=== PATIENT | male | born 1980 | race Two or more races ===

== ENCOUNTER 2018-09-19 11:21 | Observation (INO) | payer BC ==
[~2018-09-19] VITALS: Ht 162.6 cm; Wt 72.7 kg
[2018-09-19] MEDS ORDERED: TACROLIMUS ANHYD1 MG PO ×2 (11:38→11:39)
[2018-09-19] MEDS ORDERED: CELLCEPT500 MG PO (11:38)
[2018-09-19] MEDS ORDERED: OMEPRAZOLE20 M1 PO (11:38)
[2018-09-19] MEDS ORDERED: PREDNISONE5 MG PO (11:39)
[2018-09-19 12:31] LABS: BASOPHILS 0.1 % (0-2); EOSINOPHILS 0.4 % (0-7); HEMATOCRIT 47.1 % (42.0-54.0); HEMOGLOBIN 16.3 g/dL (13.5-17.5); IMMATURE GRANULOCYTES 0.4 % (0-5); LYMPHOCYTES 22.8 % (15-50); MCH 30.6 pg (26.0-34.0); MCHC 34.6 g/dL (31.0-37.0); MCV 88.5 fL (80.0-100.0); MEAN PLATELET VOLUME 9.4 fL (7.4-10.4); MONOCYTES 8.6 % (2-11); NEUTROPHILS 67.7 % (40-80); PLATELET COUNT 192 10x3/uL (130-400); RBC 5.32 10x6/uL (4.20-6.10); RDW 12.7 % (11.5-14.5); WBC 7.7 10x3/uL (4.8-10.8)
[2018-09-19 12:53] LABS: ALBUMIN 4.3 g/dL (3.4-5.0); ALKALINE PHOSPHATASE 138 U/L (46-116); ALT (SGPT) 15 U/L (10-68); BILIRUBIN - TOTAL 0.91 mg/dL (0.2-1.3); CALC OSMOLALITY 280 mosm/kg (275-300); CALCIUM 9.1 mg/dL (8.5-10.1); CARBON DIOXIDE 29.1 mmol/L (21.0-32.0); CHLORIDE - SERUM 102 mmol/L (98-107); GLUCOSE 96 mg/dL (74-106); POTASSIUM - SERUM 3.7 mmol/L (3.5-5.1); PROTEIN - SERUM 7.9 g/dL (6.4-8.2); SODIUM 140 mmol/L (136-145); UREA NITROGEN 17 mg/dL (7-18); eGFR NON AFRICAN AMERICAN 90 mL/min (90-120)
[2018-09-19 15:40] VITALS: BP 139/93
--- NOTE | 2018-09-19 15:56 | NUR ---
RECIEVED PT FROM ER. AT BEDSIDE.
[2018-09-19 16:14] VITALS: BP 139/77; Ht 162.6 cm; Wt 72.7 kg
--- NOTE | 2018-09-19 16:27 | NUR ---
PT ARRIVED FROM ER. VANCOMYCIN RUNNING. PT CO OF A "WEIRD ITCH ON HEAD". PT DOES HAVE A RASH ON THE SIDE OF HIS FACE BUT HE STATES THAT HAS BEEN THERE. VANCOMYCIN DECREASED TO 75CC/HR. L ARM IS RED AND WARM. BRUIT AND THRILL PRESENT. WILL CONTINUE TO MONITOR.
--- NOTE | 2018-09-19 20:15 | NUR ---
RESUMING PT CARE. PT IS ALERT LAYING IN BED WATCHING TV WITH NO C/O VOICED AT THIS TIME. FAMILY AT BEDSIDE. BED IN LOW POSITION WITH CALL LIGHT IN REACH. WILL CONTINUE TO MONITOR PT AND FOLLOW PLAN OF CARE.
[2018-09-19 22:08] VITALS: BP 134/79
[2018-09-20 05:05] LABS: BASOPHILS 0.2 % (0-2); EOSINOPHILS 1.2 % (0-7); HEMATOCRIT 46.7 % (42.0-54.0); IMMATURE GRANULOCYTES 0.3 % (0-5); LYMPHOCYTES 29.2 % (15-50); MCH 30.6 pg (26.0-34.0); MCHC 34.3 g/dL (31.0-37.0); MCV 89.3 fL (80.0-100.0); MEAN PLATELET VOLUME 9.3 fL (7.4-10.4); MONOCYTES 11.1 % (2-11); PLATELET COUNT 179 10x3/uL (130-400); RBC 5.23 10x6/uL (4.20-6.10); RDW 12.8 % (11.5-14.5); WBC 8.6 10x3/uL (4.8-10.8)
--- NOTE | 2018-09-20 05:45 | NUR ---
PT IN BED WITH EYES OPENED. VSS, RR UNLABORED. PT DENIES ANY NEED AT THIS TIME. CL IN REACH, BED IN LOW, SR UP X2. WILL CPOC.
[2018-09-20 07:42] VITALS: BP 112/75
[2018-09-20] MEDS ORDERED: SULFAMETHOXAZOL1 TA3 PO (09:34)
[2018-09-20] MEDS ORDERED: HYDROCODON-ACE1 EAC7 PO (09:35)
--- NOTE | 2018-09-20 12:11 | NUR ---
PT AMBULATED SELF OUT, AT SIDE. NO COMPLICATIONS/CONCERNS/COMPLAINTS NOTED AT THIS TIME.
--- NOTE | 2018-09-22 07:44 | MORECARE ---
CASE MANAGEMENT DISCHARGE SUMMARY PATIENT: LINDA NEGRON UNIT: [id number] ADM DATE: 09/19/18 AGE: 37 : 84 SEX: M ROOM/BED: D.2103 AUTHOR: AUGUSTO ALVARADO PHYSICIAN: REFERRING PHYSICIAN: JOSH MONTELONGO MD DATE OF SERVICE: 09/22/18 Discharge Plan Patient Name: LINDA NEGRON Facility: [facility]:[place] : 1980 Planned Disposition: Home Anticipated Discharge Date: 09/20/18 Discharge Date: 09/20/2018 Expected LOS: 1 Initial Reviewer: [email or web address] Initial Review Date: 09/22/2018 Generated: 09/22/18 8:44 am Patient Name: LINDA NEGRON Page [id number] at 0744 All edits/amendments must be made on the electronic document DICTATION DATE: 09/22/18742 PODIATRIST ASSISTANT: DM 09/22/1843 RPT#: [id number] DC DATE:09/20/18 STATUS: DIS IN [facility] [address] [place] [address] END OF REPORT
== END 2018-09-20 12:13 | disposition home or self-care (01) ==
LOC: D.ER 11:21 → OBSVTIME 14:28 → D.EDHOLD 14:28 → D.M2 14:28
PROVIDERS: Family Medicine; ADMIT Internal Medicine Nephrology
DX: T82.7XXA Infection and inflammatory reaction due to other cardiac and vascular devices, implants and grafts, initial encounter (principal); Y83.8 Other surgical procedures as the cause of abnormal reaction of the patient, or of later complication, without mention of misadventure at the time of the procedure; Z94.0 Kidney transplant status; I10 Essential (primary) hypertension